=== PATIENT | male | born 1995 | race Caucasian/White ===

== ENCOUNTER → 2019-06-02 | Emergency (ER) | payer MEDICAID ==
[~2019-06-02] VITALS: Ht 172.7 cm; Wt 59.0 kg
[~2019-06-02] MED LIST: DIPHENHYDRAMINE INJ 50 MG/ML VIAL IM ONE; HALOPERIDOL LACTATE 5 MG/ML VIAL IVP ONE; LORazepam 2 MG/ML VIAL (FOR ER USE) IM ONE; LORazepam 2 MG/ML VIAL IM ONE
[2019-06-02 08:16] VITALS: BP_SYST 136
[2019-06-02 15:32] VITALS: BP_SYST 101
== END | disposition still patient (30) ==
LOC: SED 08:16 → EDBD 08:16
DX: T40.1X1A Poisoning by heroin, accidental (unintentional), initial encounter (principal); Y92.89 Other specified places as the place of occurrence of the external cause
CPT/HCPCS: 96372; 99283; J1200; J1630; J2060